=== PATIENT | male | born 1985 | race Two or more races ===

== ENCOUNTER 2018-04-19 18:05 | Emergency (ER) | payer MEDICARE, MEDICAID ==
[~2018-04-19] VITALS: Ht 170.2 cm; Wt 68.0 kg
--- NOTE | 2018-04-19 20:08 | NUR ---
Pre-made splint applied to right little finger. Neuro check done and WNL, capillary refill <3. Patient discharged to home in stable conditon. Written and verbal after care instructions given. Patient verbalizes understanding of instructions. Patient ambulated out of ER with stable gait.
[2018-04-19 20:12] VITALS: BP 118/70
== END 2018-04-19 20:11 | disposition home or self-care (01) ==
LOC: ER 18:05
DX: S62.626A Displaced fracture of middle phalanx of right little finger, initial encounter for closed fracture (principal); W23.0XXA Caught, crushed, jammed, or pinched between moving objects, initial encounter; Y93.89 Activity, other specified; Y92.89 Other specified places as the place of occurrence of the external cause; Y99.8 Other external cause status
CPT/HCPCS: 73140; A4663

== ENCOUNTER 2019-02-09 12:03 | Emergency (ER) | payer MEDICARE, MEDICAID ==
[~2019-02-09] VITALS: Ht 170.2 cm; Wt 68.0 kg
--- NOTE | 2019-02-09 13:00 | NUR ---
ERMD at bedside for MSE
[2019-02-09] MEDS ORDERED: AZITHROMYCIN 250 MG TABLET ONE (13:10)
[2019-02-09] MEDS ORDERED: ONDANSETRON ODT 4 MG TAB.RAPDIS ONE (13:10)
[2019-02-09] MEDS ORDERED: METRONIDAZOLE 500 MG TABLET ONE (13:11)
[2019-02-09] MEDS ORDERED: CEFTRIAXONE 500 MG VIAL ONE (13:12)
[2019-02-09] MEDS: CEFTRIAXONE 500 MG VIAL IM ONE (13:26)
[2019-02-09] MEDS: METRONIDAZOLE 500 MG TABLET PO ONE (13:27)
[2019-02-09] MEDS: AZITHROMYCIN 250 MG TABLET PO ONE (13:27)
[2019-02-09] MEDS: ONDANSETRON ODT 4 MG TAB.RAPDIS SL ONE (13:27)
--- NOTE | 2019-02-09 13:51 | NUR ---
pt ambulating with steady gait
--- NOTE | 2019-02-09 13:51 | NUR ---
Patient discharged to home in stable conditon. Written and verbal after care instructions given. Patient verbalizes understanding of instructions.
[2019-02-09 13:54] VITALS: BP 119/67
[2019-02-11 08:06] LABS: *GC NAA Positive (Negative); *TRIC.VAG. NAA Negative (Negative)
== END 2019-02-09 13:51 | disposition home or self-care (01) ==
LOC: ER 12:03
DX: A54.01 Gonococcal cystitis and urethritis, unspecified (principal)
CPT/HCPCS: 87491; 96372; 99284; J0696; J3490; A4663; Q0144; Q0162